=== PATIENT | female | born 1990 | race Caucasian/White ===

== ENCOUNTER → 2017-11-22 | Outpatient (CLI) | payer OTHER ==
[~2017-11-22] MED LIST: CELEXA20 MG PO; ERGOCALCIF50000 UNIT PO; MULTI VITAMIN1 EACH PO; XANAX 0.25 MG0.25 MG PO; ZANTAC 150MG T150 MG PO
[2017-11-22 13:01] LABS: ALBUMIN 2.7 g/dL (3.4-5.0); DIRECT BILIRUBIN 0.1 mg/dL (<0.1-0.3); TOTAL BILIRUBIN 0.4 mg/dL (<0.1-1.0); TOTAL PROTEIN 6.9 g/dL (6.4-8.2)
== END ==
LOC: M.LAB 12:30
PROVIDERS: Obstetrics & Gynecology
DX: O99.719 Diseases of the skin and subcutaneous tissue complicating pregnancy, unspecified trimester (principal); L29.9 Pruritus, unspecified; Z3A.00 Weeks of gestation of pregnancy not specified

== ENCOUNTER → 2018-04-27 | Outpatient (CLI) | payer OTHER | LOC: M.LAB 07:00 → M.CT 07:30 | DX: Z00.01 Encounter for general adult medical examination with abnormal findings (principal); I10 Essential (primary) hypertension; E66.01 Morbid (severe) obesity due to excess calories; K21.9 Gastro-esophageal reflux disease without esophagitis; Z82.49 Family history of ischemic heart disease and other diseases of the circulatory system ==

== ENCOUNTER → 2018-09-06 | Outpatient (CLI) | payer OTHER ==
[2018-09-06 13:42] LABS: ABSOLUTE BASOPHILS 0.1 thou/uL (0.0-0.2); ABSOLUTE EOSINOPHILS 0.2 thou/uL (0.0-0.7); ABSOLUTE MONOCYTES 0.7 thou/uL (0.0-1.2); BASOPHILS 0.7 %; EOSINOPHILS 1.9 %; HEMATOCRIT 41.2 % (37.0-47.0); HEMOGLOBIN 13.5 gm/dL (12.0-15.0); LYMPHOCYTES 27.4 %; MCHC 32.9 g/dL (28.0-37.0); MCV 76.1 fL (80.0-100.0); MONOCYTES 6.1 %; MPV 8.2 fl. (7.2-11.1); NUCLEATED RBCS 0 /100WBC; PLATELET COUNT* 349 thou/uL (150-400); POLYS 63.9 %; RBC 5.41 mil/uL (4.20-5.00); RDW-CV 16.2 % (10.5-14.5)
[2018-09-06 14:11] LABS: ALBUMIN 3.5 g/dL (3.4-5.0); CREATININE 0.7 mg/dL (0.6-1.3); TOTAL BILIRUBIN 0.3 mg/dL (<0.1-1.0); TOTAL PROTEIN 7.4 g/dL (6.4-8.2)
== END ==
LOC: M.ULTRA 12:52 → M.LAB 12:52 → M.ULTRA 13:00
PROVIDERS: Specialist
DX: N92.0 Excessive and frequent menstruation with regular cycle (principal); Z87.42 Personal history of other diseases of the female genital tract

== ENCOUNTER → 2020-03-25 | Outpatient (CLI) | payer OTHER ==
[~2020-03-25] MED LIST changes: +DEXTROAMP-AMPHE20 MG PO; +SERTRALINE HCL100 MG PO; +SYMBICORT160 MCG/4. INH
[2020-03-25 11:34] LABS: ALBUMIN 3.5 g/dL (3.4-5.0); CALCIUM 8.7 mg/dL (8.5-10.1); CREATININE 0.7 mg/dL (0.6-1.3); POTASSIUM 4.5 mmol/L (3.5-5.1); TOTAL BILIRUBIN 0.2 mg/dL (<0.1-1.0); TOTAL PROTEIN 7.4 g/dL (6.4-8.2)
== END ==
LOC: M.ULTRA 03-23 15:47
PROVIDERS: ATTEND Family Medicine
DX: E04.9 Nontoxic goiter, unspecified (principal); E28.2 Polycystic ovarian syndrome; E55.9 Vitamin D deficiency, unspecified; E53.8 Deficiency of other specified B group vitamins; E66.01 Morbid (severe) obesity due to excess calories; N85.8 Other specified noninflammatory disorders of uterus

== ENCOUNTER 2020-06-10 00:18 | Observation (INO) | payer OTHER ==
[~2020-06-10] VITALS: Ht 180.3 cm; Wt 111.1 kg
[2020-06-10] MEDS ORDERED: NUVARING VAGIN1 EACH VAG (00:39)
[2020-06-10 01:08] LABS: ABSOLUTE BASOPHILS 0.2 thou/uL (0.0-0.2); ABSOLUTE EOSINOPHILS 0.3 thou/uL (0.0-0.7); ABSOLUTE MONOCYTES 0.6 thou/uL (0.0-1.2); ABSOLUTE NEUTROPHILS 7.5 thou/uL (1.6-8.1); BASOPHILS 1.2 %; EOSINOPHILS 2.1 %; HEMATOCRIT 43.6 % (37.0-47.0); LYMPHOCYTES 36.9 %; MCHC 34.4 g/dL (28.0-37.0); MCV 78.6 fL (80.0-100.0); MONOCYTES 4.7 %; MPV 8.2 fl. (7.2-11.1); NUCLEATED RBCS 0 /100WBC; PLATELET COUNT* 296 thou/uL (150-400); POLYS 55.1 %; RBC 5.54 mil/uL (4.20-5.00); RDW-CV 14.2 % (10.5-14.5); WBC 13.6 thou/uL (4.0-11.0)
[2020-06-10 01:17] LABS: CALCIUM 8.6 mg/dL (8.5-10.1); CREATININE 0.8 mg/dL (0.6-1.3); POTASSIUM 3.9 mmol/L (3.5-5.1)
[2020-06-10 01:22] LABS: ALBUMIN 3.5 g/dL (3.4-5.0); TOTAL BILIRUBIN 0.3 mg/dL (<0.1-1.0); TOTAL PROTEIN 7.3 g/dL (6.4-8.2)
[2020-06-10 02:06] LABS: URINE BILIRUBIN NEGATIVE (Negative); URINE BLOOD 1+ (Negative); URINE CLARITY CLEAR; URINE COLOR YELLOW; URINE GLUCOSE-RANDOM NEGATIVE (Negative); URINE KETONES NEGATIVE (Negative); URINE LEUKOCYTES-REFLEX NEGATIVE (Negative); URINE NITRITE-REFLEX NEGATIVE (Negative); URINE PROTEIN NEGATIVE (Negative); URINE SPECIFIC GRAVITY 1.015 (1.005-1.030); URINE UROBILINOGEN 0.2 E.U./dl (0.2-1.0)
[2020-06-10 02:32] LABS: CASTS None Seen /LPF (None Seen); SQUAMOUS 4-10 Moderate /LPF (0-3)
[2020-06-10 02:33] LABS: BACTERIA-REFLEX 1-9 Few /HPF (None Seen); CRYSTALS None Seen /LPF (None Seen); URINE RBC 0-2 Rare /HPF (0-2); URINE WBC-REFLEX 0-5 Rare /HPF (0-5)
[2020-06-10 04:43] LABS: CSF PROTEIN 34.4 mg/dl (15-45); VOLUME 9 ml
[2020-06-10 04:44] LABS: CSF CLARITY CLEAR; CSF COLOR COLORLESS
[2020-06-10 04:45] LABS: CSF CLARITY CLEAR; CSF COLOR COLORLESS; VOLUME 9 ml
[2020-06-10 05:47] LABS: CSF RBC 1 /mm3; CSF WBC 3 /mm3 (0-10)
[2020-06-10 05:48] LABS: CSF RBC 4 /mm3; CSF WBC 4 /mm3 (0-10)
[2020-06-10 06:20] VITALS: BP 117/70
[2020-06-10 06:34] VITALS: BP 134/87
[2020-06-10 08:45] VITALS: BP 136/82
[2020-06-10 16:54] VITALS: BP 128/81
[2020-06-10 19:50] VITALS: BP 132/78
[2020-06-11 08:13] VITALS: BP 124/74
[2020-06-11] MEDS ORDERED: AMITRIPTYLINE H25 M2 PO (08:19)
[2020-06-11] MEDS ORDERED: TOPAMAX 25 MG T25 M1 PO (08:19)
[2020-06-11 12:28] VITALS: BP 124/74
[2020-06-11 14:16] VITALS: BP 124/74
== END 2020-06-11 14:18 | disposition home or self-care (01) ==
LOC: M.ERS 00:18 → M.3W 04:41 → M.TBA-ER 04:41 → M.3W 06:28
PROVIDERS: Emergency Medicine; ADMIT Family Medicine; ATTEND Family Medicine
DX: G43.909 Migraine, unspecified, not intractable, without status migrainosus (principal); F41.9 Anxiety disorder, unspecified; F32.9 Major depressive disorder, single episode, unspecified; I10 Essential (primary) hypertension; K21.9 Gastro-esophageal reflux disease without esophagitis; F17.210 Nicotine dependence, cigarettes, uncomplicated; Z79.899 Other long term (current) drug therapy; Z20.828 Contact with and (suspected) exposure to other viral communicable diseases

== ENCOUNTER 2020-06-12 16:28 | Emergency (ER) | payer OTHER ==
[~2020-06-12] VITALS: Ht 180.3 cm; Wt 108.9 kg
[~2020-06-12 16:28] MED LIST changes: +AMITRIPTYLINE H25 M2 PO; +NUVARING VAGIN1 EACH VAG; +TOPAMAX 25 MG T25 M1 PO
[2020-06-12 20:03] VITALS: BP 127/88
== END 2020-06-12 19:50 | disposition home or self-care (01) ==
LOC: M.ERS 16:28
DX: G97.1 Other reaction to spinal and lumbar puncture (principal); R51.9 Headache, unspecified; K21.9 Gastro-esophageal reflux disease without esophagitis; G47.30 Sleep apnea, unspecified; Z90.49 Acquired absence of other specified parts of digestive tract; Z90.89 Acquired absence of other organs; Z98.51 Tubal ligation status; Z88.8 Allergy status to other drugs, medicaments and biological substances

== ENCOUNTER → 2020-08-25 | Outpatient (CLI) | payer OTHER ==
[2020-08-25 09:58] LABS: ABSOLUTE BASOPHILS 0.1 thou/uL (0.0-0.2); ABSOLUTE EOSINOPHILS 0.3 thou/uL (0.0-0.7); ABSOLUTE LYMPHOCYTES 2.9 thou/uL (0.8-5.3); ABSOLUTE MONOCYTES 0.7 thou/uL (0.0-1.2); ABSOLUTE NEUTROPHILS 6.3 thou/uL (1.6-8.1); EOSINOPHILS 2.9 %; HEMOGLOBIN 14.5 gm/dL (12.0-15.0); LYMPHOCYTES 28.2 %; MCH 26.7 pg (26.0-34.0); MCHC 33.8 g/dL (28.0-37.0); MCV 78.9 fL (80.0-100.0); MONOCYTES 6.4 %; MPV 8.3 fl. (7.2-11.1); NUCLEATED RBCS 0 /100WBC; PLATELET COUNT* 318 thou/uL (150-400); POLYS 61.5 %; RBC 5.45 mil/uL (4.20-5.00); RDW-CV 14.2 % (10.5-14.5); WBC 10.3 thou/uL (4.0-11.0)
[2020-08-25 10:01] LABS: CALCIUM 8.5 mg/dL (8.5-10.1); CREATININE 0.8 mg/dL (0.6-1.3); POTASSIUM 4.1 mmol/L (3.5-5.1)
[2020-08-25 11:06] LABS: ESR (SEDRATE) 6 mm/hr (0-20)
[2020-08-27 15:08] LABS: CALCITONIN 6.5 pg/mL (0.0-5.0)
== END ==
LOC: M.LAB 09:12
PROVIDERS: ATTEND Family Medicine
DX: J01.00 Acute maxillary sinusitis, unspecified (principal); R94.6 Abnormal results of thyroid function studies

== ENCOUNTER 2020-10-02 15:25 | Inpatient (IN) | payer OTHER ==
[~2020-10-02] VITALS: Ht 180.3 cm; Wt 115.7 kg
[2020-10-02 15:30] VITALS: BP 177/109
[2020-10-02] MEDS ORDERED: ADDERALL 10 MG10 MG PO (15:39)
[2020-10-02 16:05] LABS: ABSOLUTE BASOPHILS 0.1 thou/uL (0.0-0.2); ABSOLUTE EOSINOPHILS 0.1 thou/uL (0.0-0.7); ABSOLUTE LYMPHOCYTES 2.4 thou/uL (0.8-5.3); ABSOLUTE MONOCYTES 0.8 thou/uL (0.0-1.2); ABSOLUTE NEUTROPHILS 10.2 thou/uL (1.6-8.1); BASOPHILS 0.7 %; EOSINOPHILS 0.8 %; HEMATOCRIT 44.3 % (37.0-47.0); HEMOGLOBIN 14.8 gm/dL (12.0-15.0); LYMPHOCYTES 17.5 %; MCH 26.3 pg (26.0-34.0); MCHC 33.4 g/dL (28.0-37.0); MCV 78.9 fL (80.0-100.0); MONOCYTES 5.9 %; MPV 8.4 fl. (7.2-11.1); NUCLEATED RBCS 0 /100WBC; PLATELET COUNT* 321 thou/uL (150-400); POLYS 75.1 %; RBC 5.62 mil/uL (4.20-5.00); RDW-CV 14.6 % (10.5-14.5); WBC 13.5 thou/uL (4.0-11.0)
[2020-10-02 16:12] LABS: CALCIUM 8.8 mg/dL (8.5-10.1); CREATININE 0.8 mg/dL (0.6-1.3); POTASSIUM 3.5 mmol/L (3.5-5.1)
[2020-10-02 16:17] LABS: ALBUMIN 3.6 g/dL (3.4-5.0); TOTAL BILIRUBIN 0.4 mg/dL (<0.1-1.0); TOTAL PROTEIN 7.2 g/dL (6.4-8.2)
[2020-10-02 16:31] LABS: INFLUENZA A ANTIGEN Negative (Negative); INFLUENZA B ANTIGEN Negative (Negative)
[2020-10-02 20:25] VITALS: BP 145/92
[2020-10-02 20:43] VITALS: BP 140/91
[2020-10-03] VITALS: BP 152/96
[2020-10-03 04:52] VITALS: BP 136/77
[2020-10-03 09:00] VITALS: BP 122/66
[2020-10-03 10:01] LABS: CALCIUM 8.6 mg/dL (8.5-10.1); CREATININE 0.7 mg/dL (0.6-1.3); POTASSIUM 3.6 mmol/L (3.5-5.1)
[2020-10-03 10:04] LABS: MAGNESIUM 1.7 mg/dL (1.8-2.4); PHOSPHORUS* 3.6 mg/dL (2.5-4.9)
--- NOTE | 2020-10-03 10:22 | EKG ---
[place] [address] ELECTROCARDIOGRAM REPORT Name: ABDIAZIZ LEWIS Room: [address] ADM IN M.R.#: [id number] Admission: 10/02/20 Attend Phys: Kusum Mera Discharge: Date of : 89 Date of Service: 10/02/20 1551 Report #: [id number] THIS REPORT FOR: //name// [facility] ED Test Date: 2020-10-02 Test Time: 15:51:54 Pat Name: ABDIAZIZ LEWIS Department: Room: [facility] Gender: F Clinical Account Executive: ROSSANA : 1990 Requested By: Du Hernadez Order Number: [id number] MD: Giovanni Garza Measurements Intervals [place] Rate: 120 P: 53 VA: 124 QRS: 42 QRSD: 86 T: 9 QT: 315 QTc: 445 Interpretive Statements Sinus tachycardia Abnormal inferior Q waves Borderline T wave abnormalities Baseline wander in lead(s) II,III,aVR,aVF,V3 No previous ECG available for comparison Electronically Signed On 10-03-2020 10:22:09 ALLIGATOR SHEAR OPERATOR by Giovanni Garza [email or web address] <ELECTRONICALLY SIGNED> By: Giovanni Garza MD, [facility] 10/03/20 1022 1551 1551 Giovanni Garza MD, [facility] /EPI
[2020-10-03 12:00] VITALS: BP 114/84
[2020-10-03 14:47] LABS: URINE BILIRUBIN NEGATIVE (Negative); URINE BLOOD NEGATIVE (Negative); URINE CLARITY CLEAR; URINE COLOR YELLOW; URINE GLUCOSE-RANDOM NEGATIVE (Negative); URINE KETONES NEGATIVE (Negative); URINE LEUKOCYTES-REFLEX NEGATIVE (Negative); URINE NITRITE-REFLEX NEGATIVE (Negative); URINE PROTEIN NEGATIVE (Negative); URINE SPECIFIC GRAVITY 1.025 (1.005-1.030); URINE UROBILINOGEN 0.2 E.U./dl (0.2-1.0)
[2020-10-03 16:25] VITALS: BP 135/82
[2020-10-04] VITALS: BP 163/79
[2020-10-04 04:00] VITALS: BP 133/84
[2020-10-04 05:23] LABS: HEMATOCRIT 39.4 % (37.0-47.0); MCH 25.5 pg (26.0-34.0); MCHC 32.2 g/dL (28.0-37.0); MCV 79.4 fL (80.0-100.0); MPV 8.8 fl. (7.2-11.1); RBC 4.97 mil/uL (4.20-5.00); RDW-CV 14.3 % (10.5-14.5); WBC 23.5 thou/uL (4.0-11.0)
[2020-10-04 05:35] LABS: CALCIUM 8.8 mg/dL (8.5-10.1); CREATININE 0.7 mg/dL (0.6-1.3); MAGNESIUM 2.1 mg/dL (1.8-2.4); POTASSIUM 4.1 mmol/L (3.5-5.1)
[2020-10-04 05:48] LABS: HEMOGLOBIN 12.7 gm/dL (12.0-15.0)
[2020-10-04 09:30] VITALS: BP 148/89
[2020-10-04] MEDS ORDERED: PROAIR HFA8.5 GM INH (10:28)
[2020-10-04] MEDS ORDERED: PREDNISONE 20 M20 M1 PO (10:28)
[2020-10-04] MEDS ORDERED: LEVOFLOXACIN500 MG PO (10:28)
[2020-10-04 11:54] VITALS: BP 148/89
== END 2020-10-04 12:45 | disposition home or self-care (01) | DRG 871 ==
LOC: M.ERS 15:25 → M.TBA-ER 17:21 → M.ORTHSURG 20:41
PROVIDERS: Internal Medicine; Physician Assistant; ADMIT Internal Medicine; ATTEND Internal Medicine
DX: A41.9 Sepsis, unspecified organism (principal); J18.9 Pneumonia, unspecified organism; J96.01 Acute respiratory failure with hypoxia; J45.901 Unspecified asthma with (acute) exacerbation; F32.9 Major depressive disorder, single episode, unspecified; F41.9 Anxiety disorder, unspecified; K21.9 Gastro-esophageal reflux disease without esophagitis; Z20.822 Contact with and (suspected) exposure to COVID-19; G47.33 Obstructive sleep apnea (adult) (pediatric); F17.210 Nicotine dependence, cigarettes, uncomplicated; F41.1 Generalized anxiety disorder; Z90.49 Acquired absence of other specified parts of digestive tract; Z88.8 Allergy status to other drugs, medicaments and biological substances

== ENCOUNTER → 2021-06-18 | Outpatient (CLI) | payer OTHER ==
[~2021-06-18] MED LIST changes: +ADDERALL 10 MG10 MG PO; +ADDERALL 20 MG20 M1 PO; +ADDERALL XR 3030 MG PO; +LEVOFLOXACIN500 MG PO; +NORVASC 2.5 MG2.5 M1 PO; +PREDNISONE 20 M20 M1 PO; +PROAIR HFA8.5 GM INH; +WELLBUTRIN SR150 MG PO
[2021-06-18 08:59] LABS: ABSOLUTE BASOPHILS 0.1 thou/uL (0.0-0.2); ABSOLUTE EOSINOPHILS 0.2 thou/uL (0.0-0.7); ABSOLUTE MONOCYTES 0.5 thou/uL (0.0-1.2); ABSOLUTE NEUTROPHILS 6.9 thou/uL (1.6-8.1); BASOPHILS 0.6 %; EOSINOPHILS 2.2 %; HEMATOCRIT 42.8 % (37.0-47.0); HEMOGLOBIN 14.2 gm/dL (12.0-15.0); LYMPHOCYTES 27.9 %; MCH 26.3 pg (26.0-34.0); MCHC 33.1 g/dL (28.0-37.0); MCV 79.4 fL (80.0-100.0); MONOCYTES 4.6 %; NUCLEATED RBCS 0 /100WBC; PLATELET COUNT* 339 thou/uL (150-400); POLYS 64.7 %; RBC 5.39 mil/uL (4.20-5.00); RDW-CV 14.9 % (10.5-14.5); WBC 10.7 thou/uL (4.0-11.0)
[2021-06-18 09:27] LABS: ALBUMIN 3.6 g/dL (3.4-5.0); ALKALINE PHOSPHATASE 117 U/L (46-116); ANION GAP 7 mmol/L (7-16); BUN 6 mg/dL (7-18); CALCIUM 8.7 mg/dL (8.5-10.1); CHLORIDE 105 mmol/L (98-107); CO2 27 mmol/L (21-32); CREATININE 0.7 mg/dL (0.6-1.3); GLUCOSE 95 mg/dL (70-99); SGOT 16 U/L (15-37); SGPT 36 U/L (30-65); SODIUM 139 mmol/L (136-145); TOTAL BILIRUBIN 0.5 mg/dL (<0.1-1.0); TOTAL PROTEIN 7.2 g/dL (6.4-8.2)
[2021-06-18 09:42] LABS: CHOLESTEROL 141 mg/dL (<200); HDL CHOLESTEROL 36 mg/dL (>40); LDL CHOLESTEROL 87 mg/dL (<100); TC:HDL 3.9 Ratio (Not establshd); TRIGLYCERIDE 94 mg/dL (<150); VLDL 19 mg/dL (<40)
[2021-06-18 09:43] LABS: SERUM ASSESSMENT Clear
[2021-06-18 23:06] LABS: GLYCOHEMOGLOBIN (HGB A1C) 5.8 % (4.8-5.6); TESTOSTERONE 44 ng/dL (13-71)
== END ==
LOC: M.RAD 08:30
PROVIDERS: ATTEND Family Medicine
DX: R91.1 Solitary pulmonary nodule (principal); E28.2 Polycystic ovarian syndrome; I10 Essential (primary) hypertension; R73.9 Hyperglycemia, unspecified; R07.9 Chest pain, unspecified